=== PATIENT | female | born 1965 | race Caucasian/White ===

== ENCOUNTER → 2016-08-13 | Outpatient (CLI) | payer BC | LOC: BMCIMAGING 07:23 | PROVIDERS: ATTEND Physician Assistant | DX: Z12.31 Encounter for screening mammogram for malignant neoplasm of breast (principal) | CPT/HCPCS: G0202 ==

== ENCOUNTER → 2016-08-21 | Outpatient (CLI) | payer BC | LOC: BMCIMAGING 11:20 | PROVIDERS: ATTEND Physician Assistant | DX: N60.02 Solitary cyst of left breast (principal) | CPT/HCPCS: G0206 ==

== ENCOUNTER → 2017-02-20 | Outpatient (CLI) | payer BC | LOC: BMCIMAGING 09:30 | PROVIDERS: ATTEND Physician Assistant | DX: N60.02 Solitary cyst of left breast (principal) | CPT/HCPCS: G0206 ==

== ENCOUNTER → 2017-08-27 | Outpatient (CLI) | payer BC | LOC: BMCIMAGING 13:41 | PROVIDERS: ATTEND Physician Assistant | DX: Z12.31 Encounter for screening mammogram for malignant neoplasm of breast (principal); Z80.3 Family history of malignant neoplasm of breast ==